=== PATIENT | male | born 2005 | race Caucasian/White ===

== ENCOUNTER 2023-04-21 20:31 | Emergency (ER) | payer OTHER ==
[~2023-04-21] VITALS: Ht 172.7 cm; Wt 95.3 kg
[2023-04-21 21:15] VITALS: BP 108/82; PULSE 94; RESP 17; TEMP 98; O2SAT 98
[2023-04-21] MEDS: KETOROLAC 30 MG/ML VIAL IM ONE (22:54)
[2023-04-21] MEDS ORDERED: IBUP-2213 PO (23:43)
[2023-04-21] MEDS ORDERED: CYCL-711 PO (23:44)
[2023-04-21] MEDS ORDERED: DICL100G32 TP (23:44)
[2023-04-21 23:52] VITALS: BP 108/82; PULSE 94; RESP 17; TEMP 98; O2SAT 98
== END 2023-04-21 23:52 | disposition home or self-care (01) ==
LOC: MED 20:31
DX: M62.830 Muscle spasm of back (principal); Z79.899 Other long term (current) drug therapy; V49.88XA Car occupant (driver) (passenger) injured in other specified transport accidents, initial encounter; Y93.89 Activity, other specified; Y92.89 Other specified places as the place of occurrence of the external cause; Y99.8 Other external cause status
CPT/HCPCS: 71045; 72072; 96372; 99284; J1885

== ENCOUNTER 2023-07-11 22:25 | Emergency (ER) | payer OTHER ==
[~2023-07-11] VITALS: Ht 175.3 cm; Wt 86.2 kg
[~2023-07-11 22:25] MED LIST: CYCL-711 PO; DICL100G32 TP; IBUP-2213 PO
[2023-07-11 22:32] VITALS: BP 113/66; PULSE 88; RESP 16; TEMP 97.9; O2SAT 100
[2023-07-11 22:46] VITALS: BP 113/66; PULSE 88; RESP 16; TEMP 97.9; O2SAT 100
[2023-07-11] MEDS: KETOROLAC 60 MG/2 ML VIAL IM ONE (22:57)
[2023-07-11] MEDS ORDERED: ACET-8905 PO (23:20)
[2023-07-11] MEDS ORDERED: IBUP-2213 PO (23:20)
== END 2023-07-11 23:28 | disposition home or self-care (01) ==
LOC: MED 22:25
DX: S93.492A Sprain of other ligament of left ankle, initial encounter (principal); J45.909 Unspecified asthma, uncomplicated; Z79.899 Other long term (current) drug therapy; X58.XXXA Exposure to other specified factors, initial encounter; Y93.89 Activity, other specified; Y92.89 Other specified places as the place of occurrence of the external cause; Y99.8 Other external cause status
CPT/HCPCS: 73610; 96372; 99283; J1885